=== PATIENT | male | born 1990 | race Caucasian/White ===

== ENCOUNTER 2016-11-08 18:12 | Outpatient (CLI) ==
[2013-03-27 20:29] VITALS: BMI 23.8
== END 2016-11-08 18:13 | disposition home or self-care (01) ==
LOC: AMBL 18:12
PROVIDERS: ATTEND Emergency Medicine
DX: S09.90XA Unspecified injury of head, initial encounter (principal); R41.0 Disorientation, unspecified; M25.511 Pain in right shoulder; S40.211A Abrasion of right shoulder, initial encounter; V86.99XA Unspecified occupant of other special all-terrain or other off-road motor vehicle injured in nontraffic accident, initial encounter

== ENCOUNTER 2016-11-12 09:37 | Emergency (ER) ==
[2016-11-12 09:45] VITALS: BP 124/76; TEMP 97.5; BMI 22.8
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
== END 2016-11-12 10:38 | disposition home or self-care (01) ==
LOC: ED 09:37
DX: R10.9 Unspecified abdominal pain (principal); R14.0 Abdominal distension (gaseous); V86.99XD Unspecified occupant of other special all-terrain or other off-road motor vehicle injured in nontraffic accident, subsequent encounter
CPT/HCPCS: 99282

== ENCOUNTER 2017-03-28 14:46 | Emergency (ER) ==
[2017-03-28 14:49] VITALS: BP 126/77; TEMP 98.7; BMI 25.1
--- NOTE | 2017-03-28 14:56 | ED.PDOC ---
General ED Provider: Dr. SAVANNAH DOOLEY Chief Complaint: Tooth Problem Stated Complaint: Pateint is a 26 year old who compalins of right lower premolar pain, and right lower facial swelling for 2 days . Time Seen by Physician: 14:54 Mode of Arrival: Walk-In Information Source: Patient Exam Limitations: No limitations [facility] Documentation Reviewed and Agree: Yes EENT Complaint Exam - Dental/Oral Complaint/Exam Mechanism of Injury: No known trauma Onset/Duration: 1 week Symptoms Are: Still present Timing: Constant Initial Severity: Moderate Current Severity: Severe Location: right lower jaw Character: Reports: Aching, Throbbing Aggravating: Reports: Cold, Chewing Alleviating: Reports: None Associated Signs and Symptoms: Reports: Swelling Related History: Reports: Similar episode Cardiac Risk Factors: Reports: None Dental/Oral Surgical History: Reports: None Tooth Findings: Present: Gross decay, Abcess Cervical Lymphadenopathy Present: No Facial Swelling Present: Yes (right side ) Bleeding Present: No Oropharynx Findings: Absent: Clots, Active bleeding Septal Hematoma: No Foreign Body Present: No Dysphagia Present: No Drooling Present: No Asymmetrical Tonsillar Swelling Present: No Uvula Midline: Yes Joana-tonsillar Fluctuence: No Trismus Present: No Palatal Petechiae Present: No Scarlatinaform Rash Present: No Lesions: Absent: Lip, Gums, Tongue, Buccal Mucosa, Pharynx Exanthem: Absent: Lip, Gums, Tongue, Buccal Mucosa, Pharynx Vesicles: Absent: Lip, Gums, Tongue, Buccal Mucosa, Pharynx Teeth Picture: 1 - gross decay to the root Differential Diagnoses: Dental Abcess, Dental Caries Review of Systems - Review Of Systems Constitutional: Reports: No symptoms Eyes: Reports: No symptoms Ears, Nose, Mouth, Throat: Reports: Mouth pain Respiratory: Reports: No symptoms Cardiac: Reports: No symptoms GI: Reports: No symptoms : Reports: No symptoms Musculoskeletal: Reports: No symptoms Skin: Reports: No symptoms Neurological: Reports: No symptoms Endocrine: Reports: No symptoms Hematologic/Lymphatic: Reports: No symptoms All Other Systems: Reviewed and Negative Past Medical History - Past Medical History Previously Healthy: Yes Endocrine: Reports: None Cardiovascular: Reports: None Respiratory: Reports: None Hematological: Reports: None Gastrointestinal: Reports: None Genitourinary: Reports: None Neuro/Psych: Reports: None Musculoskeletal: Reports: Joint Pain Cancer: Reports: None - Surgical History General Surgical History: Reports: Appendectomy, Orthopedic (TOE) - Family History Family History: Reports: Other (mother with shelter gerd/nexium), Unknown - Social History Smoking Status: Never smoker Hx Substance Use: No Alcohol Screening: None Physical Exam - Physical Exam Appearance: Ill-appearing Ill-appearing: Mild Pain Distress: Severe Eyes: NERIS, EOMI ENT: Ears normal, Nose normal Neck: Supple Respiratory: Airway patent, Breath sounds clear, Breath sounds equal, Respirations nonlabored Cardiovascular: RRR, Pulses normal, No rub, No murmur Musculoskeletal: Normal strength, ROM intact, No edema, No calf tenderness Skin: Warm, Dry, Normal color Psychiatric: Anxious Critical Care Note - Critical Care Note Total Time (mins): 0 Course - Course Vital Signs: Temp Pulse Resp BP Pulse Ox 03/28/17 14:47 98.7 F 76 20 126/77 98 Departure - Departure Time of Disposition: 15:03 Disposition: HOME SELF-CARE Discharge Problem: Dental abscess Instructions: Dental Abscess (ED) Condition: Fair Pt referred to PMD for follow-up: Yes Additional Instructions: Take medications as prescribed Follow up with PC and the dentist in 3 days Prescriptions: Amoxicillin [Amoxil] 500 mg PO TID #30 capsule Ibuprofen [Motrin] 600 mg PO Q6H PRN #30 tablet PRN Reason: Analgesia Allergies/Adverse Reactions: Allergies No Known Allergies Allergy (Verified 03/28/17 14:49) Home Medications: Ambulatory Orders Amoxicillin [Amoxil] 500 mg PO TID #30 capsule 03/28/17 Ibuprofen [Motrin] 600 mg PO Q6H PRN #30 tablet 03/28/17
[2017-03-28] MEDS ORDERED: NORCO 5-325 PO STA (15:16)
== END 2017-03-28 15:40 | disposition home or self-care (01) ==
LOC: ED 14:46
DX: K04.7 Periapical abscess without sinus (principal); K02.7 Dental root caries
CPT/HCPCS: 99282